=== PATIENT | male | born 1990 | race Caucasian/White ===

== ENCOUNTER 2023-08-05 18:53 | Emergency (ER) | payer OTHER, SELFPAY ==
--- NOTE | ~2023-08-05 | XR_ITS ---
EXAMINATION: XR lumbar spine 2-3V DATE: 08/05/2023 19:18 INDICATION: Low back pain. TECHNIQUE: 3 views of lumbar spine were obtained. COMPARISON: None. FINDINGS: There is 8 degrees levocurvature of thoracolumbar spine. There is mild chronic anterior wed ging of multiple thoracic vertebral bodies. There is moderately decreased disc height at T8-T9 and T9 -T10. Intervertebral disc heights are normal in lumbar spine. There is multilevel mild lumbar facet j oint osteoarthrosis. IMPRESSION: 1. Mild lumbar facet joint osteoarthritis. 2. Moderate thoracic spondylosis. Reviewed, dictated and finalized at location E.
--- NOTE | 2023-08-05 18:54 | ED.BACK ---
HPI - Back Pain/Injury General Chief Complaint: Back Pain/Injury Stated Complaint: Back Injury Time Seen by Provider: 08/05/23 18:54 Source: patient Mode of arrival: ambulatory Limitations: no limitations History of Present Illness HPI Narrative: Yuri is a 33 year old male patient presenting to the clinic today with complaints of back pain that started around 2:00 this afternoon. He reports he was going from a sitting to a standing position when he developed sharp pain across his low back. States no known injury. Hurt his back like this almost year ago when bending forward and picking up something very light. Denies any saddle anesthesia or loss of bowel or bladder. Denies any difficulty walking. Pain does radiate down his lower extremities. Rates pain currently a /. Related Data Allergies Allergy/AdvReac Type Severity Reaction Status Date / Time No Known Allergies Allergy Verified 08/05/23 19:04 Review of Systems Review of Systems: Pertinent positives per HPI. Patient denies any fever, chills, rash, headache, visual changes, dizziness, cough, runny nose, sore throat, shortness of breath, chest pain, palpitations, nausea, vomiting, diarrhea, constipation, abdominal pain, or any urinary issues. PMFSH Comments At the time of my signature, I reviewed and agree with the nursing past medical, surgical, social, and family history. There is no relevant family history pertinent to the patient complaint. Exam Narrative: General: Well-developed, well nourished, in no apparent distress Head: Normocephalic, atraumatic. Cardio: Regular rate and rhythm, s1 and s2 normal, no murmur appreciated. Resp: Clear to auscultation bilaterally, no rhonchi, rales, wheezing or rubs. Musculoskeletal: No deformity, non-tender to palpation, pain to the lumbar spine when going from a sitting to a standing position, grossly normal range of motion, patellar reflexes 2+ bilaterally, negative straight leg test bilaterally, negative foot drop, bilateral lower muscle strength strong and equal, peripheral pulse strong, no edema, no cyanosis, normal gait and station Course Course Emergency Course: Portions of this record may have been created with voice recognition software. Level of Care: Express Care Visit Vital Signs Vital signs: Vital signs reviewed MDM - Back Pain/Injury MDM Narrative Medical decision making narrative: At the time of visit patient is resting comfortably on the exam table. Patient appears to be nontoxic. Diagnostics: X-ray of the lumbar spine was performed, urine dip Plan: Supportive measures were discussed with the patient and they voiced understanding discharge instructions and agrees to treatment plan. Return precautions reviewed Differential Diagnosis Differential diagnosis: Likely lumbar radiculopathy, sciatica, strain of lumbar region, renal colic, pyelonephritis, thoracic back pain and discitis Imaging Data Radiologist's impression: ITS Impressions Lumbar Spine X-Ray 08/05/23 19:21 IMPRESSION: 1. Mild lumbar facet joint osteoarthritis. 2. Moderate thoracic spondylosis. Discharge Plan Discharge Clinical Impression: Strain of lumbar region Qualifiers: Encounter type: initial encounter Qualified Code(s): S39.012A - Strain of muscle, fascia and tendon of lower back, initial encounter Osteoarthritis Qualifiers: Osteoarthritis location: spine Spinal region: lumbar Spinal osteoarthritis complication: unspecified spinal osteoarthritis Qualified Code(s): M47.816 - Spondylosis without myelopathy or radiculopathy, lumbar region Patient Disposition: Home, Self-Care Condition: Stable Instructions: Antibiotic Form, Acute Low Back Pain (ED) Additional Instructions: X-ray shows mild faucet lumbar osteoarthritis and thoracic spondylosis Take any prescription medication only as prescribed-naproxen and Flexeril Be mindful of sedation precautions given to you if taking a muscle
[2023-08-05 19:03] VITALS: BP 120/64; PULSE 102; RESP 16; TEMP 37.7; O2SAT 100
== END 2023-08-05 19:38 | disposition home or self-care (01) ==
LOC: EXPGOSH 18:58
PROVIDERS: Emergency Provider Nurse Practitioner Family; PCP Nurse Practitioner
DX: S39.012A Strain of muscle, fascia and tendon of lower back, initial encounter (principal); X58.XXXA Exposure to other specified factors, initial encounter; M47.816 Spondylosis without myelopathy or radiculopathy, lumbar region
CPT/HCPCS: 72100; 81003; 99213; G0463

== ENCOUNTER 2024-01-29 16:59 | Emergency (ER) | payer OTHER, SELFPAY ==
--- NOTE | ~2024-01-29 | XR_ITS ---
EXAMINATION: XR ribs LT 2V Exam Date/Time: 01/29/2024 17:34 CDT HISTORY: pressure/uncomfortable feeling near ribs for years, BB meme Comparison: None available. RESULT: Lines, tubes, and devices: None. Lungs and pleura: Clear. Cardiothymic silhouette: Normal. Other: No acute osseous or upper abdominal finding. IMPRESSION: No acute cardiopulmonary process. No acute osseous finding in the left ribs. Reviewed, dictated and finalized at location K.
[2024-01-29 17:09] VITALS: BP 110/68; PULSE 96; RESP 16; TEMP 36.8; O2SAT 97
--- NOTE | 2024-01-29 17:19 | ED.URI ---
HPI - URI/Sore Throat General Chief Complaint: Unspecified Stated Complaint: Left Rib Pain Source: patient Mode of arrival: ambulatory Limitations: no limitations History of Present Illness HPI Narrative: 34 y/o male presented for c/o lower left rib feeling daily for years. Says it is not pain. Says it usually occurs during certain movements, but today he cannot find a position without feeling it. Denies injury. Has a chronic cough. Has been seen for this by other clinics and pcp, he was told he has musculoskeletal or gas pains. Denies abdominal pain, constipation, urinary complaints, n/v/d/f/c. Related Data Home Medications Medication Instructions Recorded Confirmed No Home Medications 01/29/24 01/29/24 Allergies Allergy/AdvReac Type Severity Reaction Status Date / Time No Known Allergies Allergy Verified 01/29/24 17:12 Review of Systems Review of Systems: CONSTITUTIONAL: Denies body aches, fever, chills, or sweats. EYES: Denies visual changes, redness, or discharge. ENT: Denies rhinorrhea, congestion, sore throat, or otalgia. CARDIOVASCULAR: Denies chest pain, palpitations, or edema. RESPIRATORY: Reports cough, sob, wheezing. GASTROINTESTINAL: Denies abdominal pain, nausea, vomiting, or diarrhea. GENITOURINARY: Denies dysuria or hematuria. SKIN: Denies rash, itching, or wounds. MUSCULOSKELETAL: Denies back pain, joint pain, or myalgia. NEUROLOGIC: Denies headache, numbness, tingling, or weakness. PSYCH: Denies depression or anxiety. All systems reviewed & are unremarkable except as noted in HPI and below [facility] Social History Social History (Updated 01/29/24 @ 17:35 by Melanie London, RUPESH) Smoking packs per day: 1 Smoking cigarettes per day: 20.0 Smoking status: Current every day smoker Tobacco type: cigarettes Comments At time of signature, I have reviewed and agree with nursing past medical, surgical, social and family history unless otherwise noted. Please see nursing chart for further information. There is no relevant family history pertinent to the presenting complaint Exam Narrative: GENERAL: Well-appearing, in no acute distress. EYES: EOMI. No redness or drainage. Conjunctivae normal. ENT: Mucous membranes pink and moist. No rhinorrhea. CHEST: No respiratory distress. Lungs clear to all arboleda. HEART: Regular rate and rhythm. No murmur appreciated. ABDOMEN: Soft, nontender, nondistended, normal active bowel sounds. EXTREMITIES: Normal range of motion. No edema. SKIN: Warm, dry, no rash. Capillary refill normal. Normal skin turgor. NEURO: Alert and oriented x3. Gait steady. PSYCH: Normal affect. GI: Abdomen image: 1. location of the 'feeling.' Course Course Emergency Course: Patient is aware of diagnosis, understands and agrees to treatment plan. Anticipatory guidance given. Patient agrees to follow-up as directed and is aware of reasons to seek care at the emergency department. Portions of this record may have been created with voice recognition software Level of Care: Express Care Visit Vital Signs Vital signs: Vital Signs Temperature 98.2 F 01/29/24 17:09 Pulse Rate 96 01/29/24 17:09 Respiratory Rate 16 01/29/24 17:09 Blood Pressure 110/68 01/29/24 17:09 Pulse Oximetry 97 01/29/24 17:09 Temperature 98.2 F 01/29/24 17:09 Pulse Rate 96 01/29/24 17:09 Respiratory Rate 16 01/29/24 17:09 Blood Pressure 110/68 01/29/24 17:09 Pulse Oximetry 97 01/29/24 17:09 MDM - URI/Sore Throat MDM Narrative Medical decision making narrative: Discussed physical exam findings, suspect symptoms are r/t left lower ribs rubbing iliac crest based on posture and body habitus. Advised supportive measures and signs/symptoms to go to the ER. Pt is appropriate for outpt treatment and f/u. Differential Diagnosis Differential diagnosis: Likely other (musculoskeletal pain, strain, rib contusion, costochondritis, slipping rib syndrome) Imaging Data Radiologist's impression: Patient: Yuri Arce : 1990 MR#: [id number] Age: 34 Acct:[id number] Loc: [id number] ADM Date: 01/29/24Attending Dr: Ordering Physician: Melanie London APRN Date of Service: 01/29/24 Procedure(s): XR ribs LT Accession Number(s): [id number] cc: Dick, Awa Nash APRN; Melanie London APRN~ EXAMINATION: XR ribs LT 2V Exam Date/Time: 01/29/2024 17:34 CDT HISTORY: pressure/uncomfortable feeling near ribs for years, BB meme Comparison: None available. RESULT: Lines, tubes, and devices: None. Lungs and pleura: Clear. Cardiothymic silhouette: Normal. Other: No acute osseous or upper abdominal finding. IMPRESSION: No acute cardiopulmonary process. No acute osseous finding in the left ribs. Discharge Plan Discharge Clinical Impression: Musculoskeletal pain Patient Disposition: Home, Self-Care Condition: Stable Instructions: Thoracic Pain (ED) Additional Instructions: Rest. Avoid pushing, pulling, lifting or anything that worsens the symptoms Tylenol 1000mg every 8 hours as needed, You can alternate with ibuprofen 600mg Alternate ice/heat to the site. Lidocaine or salon pas pain patch or use pain cream like icy/hot or biofreeze. Gentle stretching Follow up with your primary care provider as needed in 1 week Go to the ER for worsening symptoms or concerns Prescriptions: No Action No Home Medications Follow-up/Referrals: Renay,Awa Nash APRN [Primary Care Provider] - Time of Disposition: 18:24
== END 2024-01-29 18:29 | disposition home or self-care (01) ==
PROVIDERS: Emergency Provider Nurse Practitioner Family; PCP Nurse Practitioner
DX: R07.89 Other chest pain (principal); F17.210 Nicotine dependence, cigarettes, uncomplicated
CPT/HCPCS: 71100; 99213; G0463